=== PATIENT | male | born 2000 | race Caucasian/White ===

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

== ENCOUNTER → 2020-06-12 | Outpatient (CLI) | payer BC ==
[~2020-06-12] MED LIST: TRAM50TA3 PO
[2020-06-12 18:34] LABS: BASOPHILS % (AUTO) 0 % (0-10); EOSINOPHILS # (AUTO) 0.1 10^3/uL (0.0-0.3); EOSINOPHILS % (AUTO) 1 % (0-10); HEMATOCRIT 43 % (40-54); LYMPHOCYTES # (AUTO) 3.3 X 10^3 (1.0-4.0); LYMPHOCYTES % (AUTO) 19 % (12-44); MEAN CORPUSCULAR HEMOGLOBIN 29 PG (25-34); MEAN CORPUSCULAR HGB CONC 35 G/DL (32-36); MEAN CORPUSCULAR VOLUME 81 FL (80-99); MEAN PLATELET VOLUME 9.9 FL (7.4-10.4); MONOCYTES # (AUTO) 1.2 X 10^3 (0.0-1.0); MONOCYTES % (AUTO) 7 % (0-12); NEUTROPHILS # (AUTO) 12.7 X 10^3 (1.8-7.8); NEUTROPHILS % (AUTO) 73 % (42-75); PLATELET COUNT 319 10^3/uL (130-400); RED CELL DISTRIBUTION WIDTH 14.1 % (10.0-14.5); WHITE BLOOD COUNT 17.3 10^3/uL (4.3-11.0)
[2020-06-12 18:52] LABS: ANISOCYTOSIS SLIGHT; BAND NEUTROPHILS 3 %; BASOPHILS % (MANUAL) 0 %; EOSINOPHILS % (MANUAL) 0 %; LYMPHOCYTES % (MANUAL) 19 %; MONOCYTES % (MANUAL) 3 %; NEUTROPHILS % (MANUAL) 70 %; REACTIVE LYMPHOCYTES 5 %
[2020-06-12 18:54] LABS: ALANINE AMINOTRANSFERASE 18 U/L (0-55); ALBUMIN 5.1 GM/DL (3.2-4.5); ALKALINE PHOSPHATASE 65 U/L (40-136); BUN/CREATININE RATIO 17; CALCIUM 10.1 MG/DL (8.5-10.1); CARBON DIOXIDE 21 MMOL/L (21-32); CHLORIDE 103 MMOL/L (98-107); CREATININE SERUM 1.06 MG/DL (0.60-1.30); GFR ESTIMATED > 60; GLUCOSE 109 MG/DL (70-105); POTASSIUM 3.8 MMOL/L (3.6-5.0); SODIUM 141 MMOL/L (135-145); TOTAL PROTEIN 8.1 GM/DL (6.4-8.2)
[2020-06-12 18:56] LABS: ERYTHROCYTE SEDIMENTATION RATE 6 MM/HR (0-15)
== END ==
LOC: LAB 18:15
PROVIDERS: ATTEND Family Medicine
DX: R10.31 Right lower quadrant pain (principal); R11.0 Nausea
CPT/HCPCS: 36415; 80053; 85007; 85027; 85652

== ENCOUNTER → 2020-10-19 | Outpatient (CLI) | payer BC ==
--- NOTE | 2020-10-19 09:31 | Diagnostic Imaging Report ---
PROCEDURE: US Gallbladder. TECHNIQUE: Multiple real-time grayscale images were obtained over the right upper quadrant in various projections. INDICATION: Nausea and diarrhea as well as right upper quadrant pain. FINDINGS: Liver is mildly enlarged at 19 cm. No discrete liver mass is detected. The portal vein is patent and shows normal direction of flow. The gallbladder is without stones or sludge. No wall thickening or biliary ductal dilatation is seen. Visualized pancreas is unremarkable. Aorta is nonaneurysmal. IVC is patent. Right kidney is without calculi or hydronephrosis. There is no ascites. IMPRESSION: 1. Mild hepatomegaly. 2. No evidence of cholelithiasis or acute cholecystitis. Dictated by: Dictated on workstation # [id number]
== END ==
LOC: RAD 09:00
PROVIDERS: ATTEND Family Medicine
DX: R16.0 Hepatomegaly, not elsewhere classified (principal); R10.11 Right upper quadrant pain; R19.7 Diarrhea, unspecified; R11.0 Nausea; Z20.828 Contact with and (suspected) exposure to other viral communicable diseases
CPT/HCPCS: 76705

== ENCOUNTER → 2020-10-20 | Outpatient (CLI) | payer BC ==
[~2020-10-20] MED LIST changes: +CATHETER FLUSH 10 ML SYR IV PRN; +HOLD METFORMIN - RECEIVED CONTRAST 20 ML VIAL IV SCH; +IOHEXOL 350 MG/ML 100 ML (OMNIPAQUE 350) VIAL IV ONE; +NS 100 ML (IVPB) BAG IV ONE
--- NOTE | 2020-10-20 12:23 | Diagnostic Imaging Report ---
PROCEDURE: CT abdomen and pelvis with and without contrast. TECHNIQUE: Precontrast acquisitions were acquired through the abdomen and pelvis. Multiple contiguous axial images were obtained through the abdomen and pelvis after the administration of intravenous contrast. Auto Exposure Controls were utilized during the CT exam to meet ALARA standards for radiation dose reduction. INDICATION: Periumbilical abdominal pain with nausea and diarrhea. No prior studies are available for comparison. The lung bases are clear. The liver and gallbladder are unremarkable. No biliary ductal dilatation is seen. The pancreas and spleen are unremarkable. No adrenal mass is detected. The kidneys are unremarkable. No hydronephrosis is identified. No calculi are seen. No definite ureteral or bladder calculi are detected. Bowel loops appear to be normal caliber. No definite obstruction is seen. There are occasional fluid-filled small bowel loops in the pelvis which could indicate mild enteritis. Appendix is surgically absent. There is no bowel obstruction. There is no free fluid or fluid collection. There is no free air. Prostate is unremarkable. IMPRESSION: Essentially unremarkable CT abdomen and pelvis with and without IV contrast. There is some mild fluid-filled distention small bowel loops which may indicate underlying enteritis. The study is otherwise unremarkable. Dictated by: Dictated on workstation # [id number]
== END ==
LOC: RAD 11:27
PROVIDERS: ATTEND Family Medicine
DX: R11.0 Nausea (principal); R10.33 Periumbilical pain; R19.7 Diarrhea, unspecified; R10.31 Right lower quadrant pain; Z20.828 Contact with and (suspected) exposure to other viral communicable diseases
CPT/HCPCS: 74178

== ENCOUNTER 2020-10-26 09:45 | Outpatient (CLI) | payer BC ==
[~2020-10-26] VITALS: Ht 180.3 cm; Wt 75.9 kg
[~2020-10-26 09:45] MED LIST changes: -CATHETER FLUSH 10 ML SYR IV PRN; -HOLD METFORMIN - RECEIVED CONTRAST 20 ML VIAL IV SCH; -IOHEXOL 350 MG/ML 100 ML (OMNIPAQUE 350) VIAL IV ONE; -NS 100 ML (IVPB) BAG IV ONE
== END 2020-10-26 10:45 ==
LOC: PREOP 09:45
PROVIDERS: ATTEND Surgery
DX: Z01.812 Encounter for preprocedural laboratory examination (principal); R10.13 Epigastric pain

== ENCOUNTER 2020-10-27 09:29 | Day surgery (SDC) | payer BC ==
[~2020-10-27] VITALS: Ht 180 cm; Wt 76.0 kg
[~2020-10-27 09:29] MED LIST changes: +LACTATED RINGERS 1,000 ML IV ONE
[2020-10-27 09:40] VITALS: BP 130/67
[2020-10-27] MEDS ORDERED: LACTATED RINGERS 1,000 ML IV STA (09:52)
[2020-10-27] MEDS ORDERED: HURRICAINE EXT TUBE (BENZOCAINE) XX PRN (10:00)
[2020-10-27] MEDS ORDERED: MIDAZOLAM 2 MG/2 ML (VERSED) VIAL ONE (10:04)
[2020-10-27] MEDS ORDERED: proPOfol 200 MG/20 ML (DIPRIVAN) VIAL IV ONE (10:04)
[2020-10-27 10:55] VITALS: BP 107/62
[2020-10-27 11:00] VITALS: BP 107/56
[2020-10-27 11:05] VITALS: BP 108/58
[2020-10-27 11:15] VITALS: BP 108/58
[2020-10-27 11:30] VITALS: BP 110/60
--- NOTE | 2020-10-27 11:39 | Progress Note-Post Operative ---
Post-Operative Progess Note Surgeon (s)/Ribbon Blocker (s) Surgeon TESSIE MANZANARES DO Ribbon Blocker: none Pre-Operative Diagnosis Epigastric pain, Nausea and vomiting Post-Operative Diagnosis same plus Gastritis ??pyloric stenosis Procedure & Operative Findings Date of Procedure 10/27/20 Procedure Performed/Findings EGD with bx Anesthesia Type IV sedation by Anesthesia Estimated Blood Loss Estimated blood loss (mL): scant Specimens/Packing Specimens Removed antral bx body of stomach bx GE jxn bx TESSIE MANZANARES DO Oct 27, 2020 11:39
--- NOTE | 2020-10-27 11:39 | Endoscopy Discharge Instruct ---
Endo Procedure/Findings Findings 1.: Gastritis 2.: Other Findings (??pyloric stenosis) Discharge Instructions - Activity: You might feel a little sleepy until tomorrow. This is due to the medicine you received to relax you. Until tomorrow, you should: NOT drive a car, operate machinery or power tools. NOT drink any alcoholic beverages. NOT make any important decisions or sign importortant papers. Do not return to work until tomorrow, unless otherwise instructed. Resume previous activities tomorrow. Diet: Start by taking liquids. If you tolerate liquids, advance to solid food. 1.: EGD in 3 years Notify Physician - If you experience excessive bleeding, unusual abdominal pain, fever, or chest pain, contact your doctor immediately. TESSIE MANZANARES DO Oct 27, 2020 11:39
--- NOTE | 2020-10-27 12:58 | Anesthesia-General Post-Op ---
MAC Patient Condition Mental Status/LOC: Same as Preop Cardiovascular: Satisfactory Nausea/Vomiting: Absent Respiratory: Satisfactory Pain: Controlled Complications: Absent Post Op Complications Complications None Follow Up Care/Instructions Patient Instructions None needed. Anesthesiology Discharge Order Discharge Order Patient was seen after the procedure and he was doing well, no complaints, stable vital signs, no apparent adverse anesthesia problems. JOHNNY PAUL DO Oct 27, 2020 12:58
--- NOTE | 2020-10-27 20:18 | OPERATIVE REPORT ---
DATE OF SERVICE: PREOPERATIVE DIAGNOSES: Epigastric pain, nausea and vomiting. POSTOPERATIVE DIAGNOSES: Epigastric pain, nausea and vomiting, gastritis, questionable small pylorus. PROCEDURE: EGD with biopsy. SURGEON: Asael Steele DO SHUTTLECOCK ASSEMBLER: None. ANESTHESIA: IV sedation by the anesthesiologist. SPECIMEN: Biopsy from the antrum, biopsy of body of stomach, biopsy of the GE junction. BLOOD LOSS: Scant. FLUIDS: Per anesthesia. POSTOPERATIVE CONDITION: Stable. INDICATION FOR PROCEDURE: The patient is a 20-year-old male, who has been having intractable nausea and vomiting basically daily with epigastric pain, had a CT and ultrasound, which were normal and needed a workup. FINDINGS: The patient had some gastritis, questionable small pylorus was very pinpoint and did not really open very much. Biopsies performed. PROCEDURE NOTE: After informed consent was obtained, the patient was brought to the endoscopy suite, placed in bed in left lateral decubitus position. He was administered IV sedation by the anesthesiologist who then monitored his vitals the entire time, heart rate, blood pressure and pulse ox and the scope was inserted down the mouth through the esophagus into the stomach, retroflexed the scope, did not see a hiatal hernia and then looked towards the pylorus was very small and actually had difficulty getting into the pylorus and was able to get in and took a picture of the small intestine. This looked fine. Pulled back. The pylorus was a little bit more dilated at this point did a biopsy of the antrum, then did a biopsy of the body of stomach, looked a little bit red in both spots and then pulled the scope into the GE junction, did a biopsy, then pushed the scope back into the stomach, suctioned all the air out and then pulled the scope up the esophagus and out the mouth. The patient tolerated the procedure, recovered in endoscopy suite. Job ID: [id number] DocumentID: [id number] Dictated Date: 10/27/2020 11:42:09 Head Mixer Date: 10/27/2020 20:17:57 Dictated By: ASAEL STEELE DO
== END 2020-10-27 11:45 | disposition home or self-care (01) ==
LOC: ENDO 09:29
PROVIDERS: ATTEND Surgery
DX: K29.50 Unspecified chronic gastritis without bleeding (principal); K21.00 Gastro-esophageal reflux disease with esophagitis, without bleeding; Z79.899 Other long term (current) drug therapy; Z88.5 Allergy status to narcotic agent
CPT/HCPCS: 88305; 88342

== ENCOUNTER → 2021-02-03 | Outpatient (CLI) | payer BC ==
[~2021-02-03] MED LIST changes: -LACTATED RINGERS 1,000 ML IV ONE
== END ==
LOC: LAB 10:53
PROVIDERS: ATTEND Nurse Practitioner Family
DX: R19.7 Diarrhea, unspecified (principal)
CPT/HCPCS: 87015; 87045; 87046; 87324; 87328; 87329; 87449; 87899